=== PATIENT | male | born 1985 | race African-American/Black ===

== ENCOUNTER 2016-05-05 13:48 | Emergency (ER) | payer MEDICAID ==
[~2016-05-05] VITALS: Ht 177.8 cm; Wt 117.9 kg
[2016-05-05 14:04] VITALS: BP 134/80
== END 2016-05-05 19:27 | disposition left against medical advice (07) ==
LOC: ER 13:53
DX: M79.671 Pain in right foot (principal); Z53.21 Procedure and treatment not carried out due to patient leaving prior to being seen by health care provider